=== PATIENT | female | born 1970 | race Caucasian/White ===

== ENCOUNTER 2023-06-20 08:42 | Outpatient (OUT) | payer OTHER, SELFPAY ==
--- NOTE | 2023-06-20 08:46 | MM_ITS ---
Patient: FATOUMATA ALONZO Exam Date: 06/20/2023 : 1970 Gender:F Ordering : DR Stephanie Multani M.D. Admission #: [id number] Family : Order #: [id number] CLICK HERE TO VIEW EXAM RADIOLOGY REPORT PROCEDURE: MM TOMOSYNTHESIS SCREENING BI COMPARISON: MG MAMM SCREEN JASMYNE W CAD, 07/27/2019. MG MAMM SCREEN 3D JASMYNE CAD, 02/05/2022. INDICATIONS: Screening Calculator Name NCI Breast Cancer Risk Assessment Tool 5 Year Breast Cancer Risk 0.90% Lifetime Breast Cancer Risk 8.00% Personal Breast Cancer No Personal Ovarian Cancer No Treatments None Family Cancers Aunt-paternal with breast cancer at age 40. LOCATION: [facility] BREAST COMPOSITION: Extremely dense, which lowers the sensitivity of mammography. FINDINGS: DIAGNOSTIC CATEGORY 0--INCOMPLETE: NEED ADDITIONAL IMAGING EVALUATION. Scattered benign-appearing nodules are present. Scattered benign-appearing calcifications are present. Scattered benign-appearing lymph nodes are present. RIGHT BREAST: 2.3 cm spiculated mass identified on the CC projection tomographic image 33. Spot imaging and ultrasound follow-up is required. LEFT BREAST: No significant suspicious finding. RECOMMENDATIONS: ADDITIONAL MAMMOGRAPHIC VIEWS REQUIRED: RIGHT BREAST - spot compression ULTRASOUND: RIGHT BREAST PLEASE NOTE: A NORMAL MAMMOGRAM DOES NOT EXCLUDE THE POSSIBILITY OF BREAST CANCER. A CLINICALLY SUSPICIOUS PALPABLE LUMP SHOULD BE BIOPSIED. Dictated by: Tevin Donnelly MD on 06/20/2023 at 12:54 Approved by: Tevin Donnelly MD on 06/20/2023 at 12:59
== END 2023-06-20 08:43 | disposition home or self-care (01) ==
LOC: MAMMO 08:42
PROVIDERS: PCP Family Medicine; Visit Provider Family Medicine
DX: Z12.31 Encounter for screening mammogram for malignant neoplasm of breast (principal); Z80.3 Family history of malignant neoplasm of breast; N63.10 Unspecified lump in the right breast, unspecified quadrant
CPT/HCPCS: 77063; 77067

== ENCOUNTER 2023-07-01 07:50 | Outpatient (OUT) | payer OTHER, SELFPAY ==
--- NOTE | 2023-07-01 | MM_ITS ---
Patient: FATOUMATA ALONZO Exam Date: 07/01/2023 : 1970 Gender:F Ordering : DR Stephanie Multani M.D. Admission #: [id number] Family : Order #: [id number] CLICK HERE TO VIEW EXAM RADIOLOGY REPORT PROCEDURE: MM DIAGNOSTIC MAMMO UNILAT RT, 07/01/2023, 08:00 US BREAST RT LIMITED, 07/01/2023, 08:22 COMPARISON: MM TOMOSYNTHESIS SCREENING BI, 06/20/2023. MG MAMM SCREEN 3D JASMYNE CAD, 02/05/2022. MG MAMM SCREEN JASMYNE W CAD, 07/27/2019. MG MAMM SCREEN JASMYNE W CAD, 06/02/2018. INDICATIONS: ABNORMALITY OF RIGHT BREAST ON SCREENING R92.8 Calculator Name NCI Breast Cancer Risk Assessment Tool 5 Year Breast Cancer Risk 0.90% Lifetime Breast Cancer Risk 8.00% Personal Breast Cancer No Personal Ovarian Cancer No Treatments None Family Cancers Aunt-paternal with breast cancer at age 40. LOCATION: [facility] BREAST COMPOSITION: Extremely dense, which lowers the sensitivity of mammography. FINDINGS: DIAGNOSTIC CATEGORY 2--BENIGN FINDING: RIGHT BREAST: Spiculated area within posterior central breast on recent mammogram CC view only appears to represent summation of structures with no corresponding findings on the MLO view or spot magnification views. No abnormal findings within this area on today's ultrasound study. Incidental small cyst versus benign-appearing nodule within the subareolar region, 6 o'clock, 4 x 3 x 2 millimeters. RECOMMENDATIONS: ROUTINE MAMMOGRAM AND CLINICAL EVALUATION IN 12 MONTHS. PLEASE NOTE: A NORMAL MAMMOGRAM DOES NOT EXCLUDE THE POSSIBILITY OF BREAST CANCER. A CLINICALLY SUSPICIOUS PALPABLE LUMP SHOULD BE BIOPSIED. Dictated by: Gage Romero M.D. on 07/01/2023 at 08:56 Approved by: Gage Romero M.D. on 07/01/2023 at 09:04
== END 2023-07-01 07:51 | disposition home or self-care (01) ==
LOC: MAMMO 07:50
PROVIDERS: PCP Family Medicine; Visit Provider Family Medicine
DX: R92.8 Other abnormal and inconclusive findings on diagnostic imaging of breast (principal)
CPT/HCPCS: 76642; 77065

== ENCOUNTER 2024-08-29 09:16 | Emergency (ER) | payer OTHER, SELFPAY ==
[2024-08-29 09:20] VITALS: BP 147/80; PULSE 61; TEMP 36.7; O2SAT 100; BMI 27.4
--- NOTE | 2024-08-29 10:47 | US_ITS ---
[facility] [place] [id number] Patient Name: FATOUMATA ALONZO MRN: [id number] date: 1970 Sex: F Assigned Patient Location: ER Current Patient Location: .[facility] Accession/Order Number: [id number] Exam Date: 08/29/2024 11:00 Report Date: 08/29/2024 11:37 At the request of: MAGDA MERCER Procedure: US venous doppler LE RT Ultrasound venous duplex scan right lower extremity CLINICAL: Right calf pain for several days TECHNIQUE: Thomas-scale, color Doppler and Duplex examination of the right lower extremity was performed with and without provocative maneuvers. FINDINGS: Comparison: None. Sonographic examination of the right lower extremity deep venous system to include the common femoral, superficial femoral and popliteal veins, demonstrates normal compressibility, color-flow, respiratory variation, and augmentation. The origin of the greater saphenous vein demonstrates normal compression, and there is normal color-flow in the proximal profunda femoral vein. There is normal color-flow in the peroneal, posterior tibial, and anterior tibial veins. US/US venous doppler LE RT IMPRESSION: 1. No deep venous thrombosis in the right lower extremity. Electronically authenticated by: HAKEEM SPIVEY Date: 08/29/2024 11:37
--- NOTE | 2024-08-29 11:39 | ED_ITS ---
HPI HPI - General Adult General Chief complaint: Extremity Problem, Nontraumatic Stated complaint: LOWER EXTREMITY PAIN Time Seen by Provider: 08/29/24 09:28 Source: patient Mode of arrival: walk-in Limitations: no limitations History of Present Illness HPI narrative: Patient presents ED complaining of right calf pain. She said she has varicose veins and had some mild swelling. She said yesterday she was on her feet a lot and she had some pain in her calf. She said last night she had pain in her calf as well. She is here to rule out blood clot because she was concerned for that. No chest pain no shortness of breath. Alert and oriented in no acute distress Related Data Home Medications ?Medication ?Instructions ?Recorded ?Confirmed No Known Home Medications 08/29/24 08/29/24 Allergies Allergy/AdvReac Type Severity Reaction Status Date / Time meperidine (From Demerol) AdvReac Severe Hallucinati Verified 08/29/24 09:25 ng Opioid HPI Opioid Management Most Recent Opioid Data: Last Pain Scale 5 08/29/24 09:36 08/29/24 Review of Systems ROS Status of ROS 10 or more systems reviewed and unremark able except as noted in history and below PFSH PFSH Social History Little interest or pleasure in doing things: not at all Feeling down, depressed, or hopeless: not at all Exam Narrative Exam Narrative: General: alert, no acute distress Cardiovascular: regular rate and rhythm, normal peripheral perfusion. Respiratory: Lungs CTA, respirations non labored. Extremities: no deformity, no trauma. Mild tenderness to palpation posterior right calf. Normal distal pulses and. Normal motor Neurological: oriented x 4, LOC appropriate for age. Constitutional Vital Signs, click to edit/add: Last Vital Signs Temp 98.1 F 08/29/24 09:20 Pulse 61 08/29/24 09:20 Resp 20 08/29/24 09:20 BP 147/80 H 08/29/24 09:20 Pulse Ox 100 08/29/24 09:20 O2 Del Method Room Air 08/29/24 09:20 Course Vital Signs Vital signs: Vital Signs Temperature 98.1 F 08/29/24 09:20 Pulse Rate 61 08/29/24 09:20 Respiratory Rate 20 08/29/24 09:20 Blood Pressure 147/80 H 08/29/24 09:20 Pulse Oximetry 100 08/29/24 09:20 Oxygen Delivery Method Room Air 08/29/24 09:20 Temperature 98.1 F 08/29/24 09:20 Pulse Rate 61 08/29/24 09:20 Respiratory Rate 20 08/29/24 09:20 Blood Pressure 147/80 H 08/29/24 09:20 Pulse Oximetry 100 08/29/24 09:20 Oxygen Delivery Method Room Air 08/29/24 09:20 Medical Decision Making MDM Narrative Medical decision making narrative: Vascular study negative for any acute DVT in the right lower extremity. Most likely that this is of varicose vein that is causing some pain in the calf. Return to ED if worsening symptoms otherwise follow-up with family doctor. Patient is comfortable care plan for home Differential Diagnosis Differential Diagnosis: Varicose vein, SVT, DVT Discharge Plan Discharge Chief Complaint: Extremity Problem, Nontraumatic Clinical Impression: Right calf pain Patient Disposition: Home, Self-Care Time of Disposition Decision: 11:35 Condition: Good Mode of Transportation: Private Vehicle Prescriptions / Home Meds: No Action No Known Home Medications Print Language: Kenyan Instructions: Leg Pain (ED) Referrals: Stephanie Multani MD [Primary Care Provider] - 1 week
== END 2024-08-29 11:41 | disposition home or self-care (01) ==
PROVIDERS: Emergency Provider Emergency Medicine; PCP Family Medicine
DX: M79.661 Pain in right lower leg (principal)
CPT/HCPCS: 93971; 99285

== ENCOUNTER 2024-11-07 07:59 | Outpatient (OUT) | payer OTHER, SELFPAY ==
--- OUTSIDE RECORDS SUMMARY | 2024-11-07 08:03 | XMS_ITS | CCD ---
Author Organization [facility] Inform ion Partnership [facility] Care Team Providers Care Rabbit Breeder Name Role Phone DR STEPHANIE MULTANI Admitting Unavailable DR STEPHANIE MULTANI Primary Care Unavailable DR STEPHANIE MULTANI Attending Unavailable DR GAGE ROMERO Consulting Unavailable KOBE, DR STEPHANIE Mack Consulting Unavailable Allergies Allergy Classification Reported Allergen(s) Allergy Type Date of Onset Reaction(s) Facility (1 source) Sulfamethoxazole / Trimethoprim Drug Allergy 7 [facility] Repository Problems Problem Classification Problem Date Documented Da te Episodic/Chronic Cardiac dysrhythmias (2 sources) Palpitations; Translations: [Palpitations] 10-09-2024 Episodic Nonspecific chest pain (2 sources) Left sided chest pain; Translations: [Chest pain, unspecified] 10-09-2024 Episodic Other screening for suspected conditions (not mental disorders or infectious disease) (4 sources) Encounter for screening mammogram for malignant neoplasm of breast; Translations: [ENC SCR MAMMO MALIG NEOPLASM BREAST] Onset: 02-05-2022 Episodic Other skin disorders (2 sources) Mass of skin of right lower limb; Translations: [Disorder of the skin and subcutaneous tissue, unspecified] 04-26-2024 Episodic Residual codes; unclassified (1 source) Family history of malignant neoplasm of breast; Translations: [FAMILY HX MALIG NEOPLASM OF BREAST] Onset: 02-10-2022 Episodic Residual codes; unclassified (1 source) Family history of cardiac disorder; Translations: [Family history of ischemic heart disease and other diseases of the circulatory system] 10-09-2024 Episodic Residual codes; unclassified (1 source) Family history of coronary arteriosclerosis; Translations: [Family history of ischemic heart disease and other diseases of the circulatory system] 10-09-2024 Episodic Residual codes; unclassified (2 sources) Family history of ischemic heart disease and other diseases of the circulatory system; Translations: [Family history of ischemic heart disease] 10-09-2024 Episodic Results Test Name Value Interpretation Reference Range Facil ity MG MAMM SCREEN 3D JASMYNE CADon 02-05-2022 MG MAMM SCREEN 3D JASMYNE CAD Patient: MITRA ALOZNO Exam Date: 02/05/2022 : 1970 Gender:F Ordering : DR STEPHANIE MULTANI M.D. Admission #: [id number] Family : Order #: [id number] CLICK HERE TO VIEW EXAM RADIOLOGY REPORT PROCEDURE: MAMMOGRAM SCREENING 3D BILATERAL CAD COMPARISON: MG MAMM SCREEN JASMYNE W CAD, 04/01/2017. MG MAMM SCREEN JASMYNE W CAD, 07/27/2019. MG MAMM SCREEN JASMYNE W CAD, 06/02/2018. INDICATIONS: Screening mammography Calculator Name NCI Breast Cancer Risk Assessment Tool 5 Year Breast Cancer Risk 0.80% Lifetime Breast Cancer Risk 8.20% Personal Breast Cancer No Personal Ovarian Cancer No Treatments None Family Cancers Aunt-paternal with breast cancer at age 40. LOCATION: [facility] BREAST COMPOSITION: Extremely dense, which lowers the sensitivity of mammography. FINDINGS: DIAGNOSTIC CATEGORY 2--BENIGN FINDING: RIGHT BREAST: No significant suspicious finding. Scattered benign-appearing calcifications are present. No significant change has occurred. LEFT BREAST: No significant suspicious finding. No significant change has occurred. RECOMMENDATIONS: ROUTINE MAMMOGRAM AND CLINICAL EVALUATION IN 12 MONTHS. PLEASE NOTE: A NORMAL MAMMOGRAM DOES NOT EXCLUDE THE POSSIBILITY OF BREAST CANCER. A CLINICALLY SUSPICIOUS PALPABLE LUMP SHOULD BE BIOPSIED. Dictated by: Gage Romero M.D. on 02/05/2022 at 10:47 Approved by: Gage Romero M.D. on 02/05/2022 at 10:51 Normal [facility] Vital Signs Date Time Vital Sign Value Performing Clinician Faci lity 10-09-2024 09:49-0500 Body height 157.48 cm [facility] 10-09-2024 09:49-0500 Body mass index (BMI) [Ratio] 27.8 kg/m2 [facility] 10-09-2024 09:49-0500 Body weight 68.94 kg [facility] 10-09-2024 09:49-0500 Diastolic blood pressure 83 mm[Hg] [facility] 10-09-2024 09:49-0500 Heart rate 60 /min [facility] 10-09-2024 09:49-0500 Systolic blood pressure 126 mm[Hg] [facility] 04-26-2024 15:36-0400 Body height 157.48 cm [facility] 04-26-2024 15:36-0400 Body mass index (BMI) [Ratio] 28.7 kg/m2 [facility] 04-26-2024 15:36-0400 Body weight 71.21 kg [facility] 04-26-2024 15:36-0400 Diastolic blood pressure 83 mm[Hg] [facility] 04-26-2024 15:36-0400 Heart rate 63 /min [facility] 04-26-2024 15:36-0400 Systolic blood pressure 134 mm[Hg] [facility] Encounters Encounter Date Encounter Type Care Provider Facility Start: 10-09-2024 End: 10-09-2024 ambulatory [facility] Work Phone: Start: 10-09-2024 End: 10-09-2024 Patient encounter procedure [facility] Work Phone: Start: 08-30-2024 Non-patient / Non-visit [facility] Work Phone: Start: 04-26-2024 End: 04-26-2024 ambulatory [facility] Work Phone: Start: 04-26-2024 End: 04-26-2024 Patient encounter procedure [facility] Work Phone: Start: 02-05-2022 End: 02-06-[address] STEPHANIE MULTANI Facility: Plan of Treatment Date Care Activity Detail Author [facility] Payers Date Payer Category Payer Unknown [id number] 1957 Unknown [id number] Unknown MMO [id number] Unknown [employer] [id number] Unknown HCAP/HFA/FAP Active [id number] Social History Date Type Detail Facility Start: 04-26-2024 End: 04-26-2024 Tobacco smoking status NHIS Never smoked tobacco (finding) [facility] Start: 1970 Sex Assigned At Female F [facility] Start: 10-09-2024 Sex Female (finding) [facility] Evaluation note Note Date & Type Note Facility Evaluation note No assessment information availa ble [facility] Work Phone: Evaluation note Note Date & Type Note Facility Evaluation note Diagnosis Onset Date Resolution Family history of coronary artery disease acute October 09, 2024 9:42am Family history of mitral valve prolapse acute October 092024 9:42am Left-sided chest pain acute Sep 9:42am Palpitations acute September 9:42am [facility] Work Phone: Summary Purpose Family History No Family History Records Found Advance Directives Advance Directive Response Recorded Date/ Time Advance Directives No April 26 3:31pm Advance Directive Response Recorded Date/ Time Advance Directives No April 26 2:31pm Chief Complaint and Reason for Visit Chief Complaint left leg blister Chief Complaint Admit Date Amb Documentation August 30, 2024 9:28am talk about MRI October 09, 2024 9 :42am Reason for Visit Admit Date Family history of coronary artery diseas e October 09, 2024 9:42am Family history of mitral valve prolapse October 09, 2024 9:42am Left-sided chest pain October 09, 2024 9:42am Palpitations October 09, 2024 9 :42am Additional Source Comments INFORMATION SOURCE (unrecogn ized section and content) DATE CREATED AUTHOR 02/11/2022 [facility] Care Teams (unrecognized sec tion and content) Team Status: Active Member Role Status Dates Stephanie Multani MD Primary Care Provider Active Team Status: Active Member Role Status Dates Stephanie Multani MD Primary Care Provider Active Start: August 30, 2024 Jen Her CMA Attending Provider Active Start: August 30, 2024 Team Status: Inactive Member Role Status Dates Stephanie Multani MD Primary Care Provide r, Attending Provider Active Start: October 09, 2024 End: October 09, 2024 Team Status: Active Member Role Status Dates Stephanie Multani MD Primary Care Provider Active Team Status: Inactive Member Role Status Dates Stephanie Multani MD Primary Care Provide r, Attending Provider Active Start: April 26, 2024 End: April 26, 2024 Team Status: Active Member Role Status Dates Stephanie Multani MD Primary Care Provider Active Start: August 30, 2024 Jen Her CMA Attending Provider Active Start: August 30, 2024 Team Status: Inactive Member Role Status Dates Stpehanie Multani MD Primary Care Provide r, Attending Provider Active Start: October 09, 2024 End: October 09, 2024 Goals (unrecognized section and content) Goals may be documented in a n alternate sectionGoals may be documented in an alternate section FOR RECORDS PERTAINING TO PATIENTS WHO ARE OR HAVE BEEN ENROLLED IN A CHEMICAL DEPENDENCY/SUBSTANCEABUSE PROGRAM, SOME INFORMATION MAY BE OMITTED. This clinical summary was aggregated from multiple sources. Caution should be exercised in using it in the provision of clinical care. This summary normalizes information from multiple sources, and as a consequence, information in this document may materially change the coding, format and clinical context of patient data. In addition, data may be omitted in some cases. CLINICAL DECISIONS SHOULD BE BASED ON THE PRIMARY CLINICAL RECORDS. [facility] [facility]. provides no warranty or guarantee of the accuracy or completeness of information in this document.
--- NOTE | 2024-11-07 08:15 | CA_ITS ---
Patient Name: FATOUMATA ALONZO MR#: [id number] : 1970 Exam Date: 11/07/2024 Ordering Doctor: DR Stephanie Multani M.D. ECHOCARDIOGRAM REPORT PROCEDURE: CA ECHO DOPPLER COMPLETE INDICATIONS: Chest pain, palpitations COMPARISON: None. DESCRIPTION: COMPLETE ECHOCARDIOGRAM Real-time transthoracic echocardiography with 2D, M-mode, spectral and color flow Doppler performed. QUALITY: Technical quality was good. LEFT VENTRICLE: Normal chamber size. Normal left ventricular wall thickness. Normal left ventricular systolic function without wall motion abnormalities. LV EF: Normal left ventricular ejection fraction 55%. DIASTOLIC: Normal diastolic function. ATRIAL SEPTUM: Visually appears intact. LEFT ATRIUM: Normal chamber size. RIGHT ATRIUM: Normal chamber size. RIGHT VENTRICLE: Normal chamber size. Normal right ventricular systolic function. TRICUSPID VALVE: Normal mobility and thickness. No stenosis with trivial regurgitation. No evidence of pulmonary hypertension.RVSP 29 mmHg MITRAL VALVE: Normal mobility and thickness. No evidence of mitral valve stenosis. There is no mitral annular calcification. Trivial mitral regurgitation. AORTIC VALVE: Normal trileaflet appearance. No visible sclerosis. Normal leaflet mobility. No evidence of aortic valve stenosis. No aortic regurgitation. AORTIC ROOT: Normal diameter and appearance. Ascending aorta is normal in size. PULMONIC VALVE: Normal thickness and mobility. No stenosis. Trivial regurgitation. PERICARDIUM: No evidence of pericardial effusion. IVC: Collapes with inspirations. IVC is normal in size. PLEURA: CONCLUSION: Normal left ventricle cavity size and wall thickness, normal left ventricle systolic function without wall motion abnormalities, ejection fraction 55% Normal right ventricle size and systolic function Normal right-sided pressures No significant valvular abnormalities Adult Echocardiography Procedure Report Left Ventricle LVEDD (3.7 - 5.6 cm): 5.00 cm LVESD (2.2 - 4.0 cm): 3.45 cm LVIVS thickness (0.6 - 1.2 cm): 0.83 cm LVPW thickness (0.5 - 1.0 cm): 0.61 cm e': 0.11 m/s E - e': 5.77 LVOT Max Gradient: 3.25 mm[Hg] LVOT Area (cm2): 0.90 m/s Peak Velocity (LVOT): 0.90 m/s Mean Velocity (LVOT): 0.63 m/s LVOT Diameter 1.80 cm Left Ventricular Ejection Fraction: Left Atrium LA Volume Index (2D A2C): 30.82 ml/m2 Left Atrium Systolic Dimension: 3.53 cm Mitral Valve MV E to A Ratio: 1.19 MV Max Gradient: MV Mean Gradient: Mitral Valve A-Wave Peak Velocity: 0.54 m/s Mitral Valve E-Wave Peak Velocity: 0.64 m/s Cardiovascular Orifice Area: Right Ventricle RV Internal Diastolic Dimension: Aorta AO Root Diam: 2.93 cm Ascending Ao Diam: 2.77 cm Aortic Valve AoV Area (Peak Nahun): 1.78 cm2, 1.78 cm2 AoV Area (VTI): 1.71 cm2, 1.71 cm2 Deceleration Davis: Pressure Half-Time: Peak Velocity(Antegrade Flow): 1.28 m/s Peak Gradient(Antegrade Flow): 6.59 mm[Hg] Mean Velocity(Antegrade Flow): 0.86 m/s Mean Gradient(Antegrade Flow): 3.42 mm[Hg] Velocity Time Integral: 27.73 cm Tricuspid Valve Peak Velocity (Regurgitant Flow): 2.54 m/s Peak Velocity: Pulmonic Valve Mean Gradient: 1.83 mm[Hg] Mean Velocity: 0.63 m/s Peak Velocity: 0.93 m/s, 0.85 m/s Peak Gradient: 2.87 mm[Hg], 3.45 mm[Hg] Right Atrium Right Atrium Systolic Pressure: 20.90 ml, 20.90 ml Dictated by: Dany Mancini MD on 11/07/2024 at 18:13 Approved by: Dany Mancini MD on 11/07/2024 at 18:25
[2024-11-07] MEDS: REGADENOSON 0.4 MG/5 ML SYRINGE IV (10:36)
[2024-11-07] MEDS: AMINOPHYLLINE 250 MG/10 ML VIAL 50 MG IVP (10:36)
--- NOTE | 2024-11-07 10:37 | PC.NURSE ---
Nursing Note Cardiac Stress Test Reviewed: Medication, allergies and patient history reviewed. Stress Test: [x ] Patient tolerated stress test well. [ ] Patient unable to tolerate walking on treadmill. Switched to Lexiscan stress test. [ x] No chest pain noted per patient [ ] Chest pain that resolved prior to leaving stress lab. [ ] No dyspnea noted. [x ] Dyspnea that resolved prior to leaving stress lab. [ x] Patient left stress lab asymptomatic and hemodynamically stable. [ ] Patient taken to the Emergency Room due to non-resolving symptoms following stress test. [ ] Patient achieved target heart rate. [ ] Patient unable to achieve target heart rate. [x ] Aminophylline administered as reversal agent to Lexiscan (Regadenoson). [ ] Nitro administered. Nursing Comments: Patient was prepared for walking test per protocol and we obtained a pretest ECG that was able to be analyzed. Once patient was moving on the treadmill the ECG tracing was unable to be read. Patient leads were checked and intact but tracing was not diagnostic. Patient was removed from the treadmill, the leads were all removed and her skin was prepped again. New patches and leads were placed, a pretest ECG was performed and able to be analyzed by the machine but once the patient was placed back on the treadmill we were unable to read anything on the ECG. She was then switched to a lexiscan test. The lexiscan was administered and after 3 minutes patient remained symptomatic. Aminophylline was administered per protocol to reverse the effects of the lexiscan. Prior to leaving the stress lab patient reported feeling back to her baseline with a slight headache remaining.
--- NOTE | 2024-11-07 17:38 | P.STRESS_ITS ---
Stress Test Stress Test Allergies Allergy/AdvReac Type Severity Reaction Status Date / Time meperidine (From Demerol) AdvReac Severe Hallucinati Verified 08/29/24 09:25 ng Requesting physician: Pravin Haley Procedure: Lexiscan Cardiolite stress test General Information: Reason for Stress Test: Chest pain, palpitations Risk Factors: Unspecified family history of cardiac disease Resting 12 - Lead Electrocardiogram: Normal sinus rhythm @ 65. Right axis deviation. Inverted T-waves in aVL. Stress Test: Protocol: Lexiscan protocol was initiated with injection of 0.4mg Lexiscan IV push followed by Cardiolite. Blood pressure: Initial and maximum: 138/88 Rate & rhythm: Patient remained in sinus rhythm during the exercise and recovery portions of the study.? The maximum heart rate was 113, which was 66% of the maximum predicted heart rate. ST-segments & T-waves: There were no T-wave changes and no ST-segment changes when compared to the baseline EKG. Patient response/symptoms: There were no symptoms similar to the chief complain t. Interpretation: Normal Lexiscan stress test without electrocardiographical evidence of ischemia. Patient was asymptomatic regarding chief complaint. Cardiolite imaging interpretation will be reported separately. Clinical correlation required.
== END 2024-11-07 08:00 | disposition home or self-care (01) ==
LOC: NM 08:00
PROVIDERS: PCP Family Medicine; Visit Provider Family Medicine
DX: R07.9 Chest pain, unspecified (principal); R00.2 Palpitations; Z82.49 Family history of ischemic heart disease and other diseases of the circulatory system
CPT/HCPCS: 78452; 93017; 93306; A9500; J0280; J2785

== ENCOUNTER 2025-08-26 14:06 | Outpatient (OUT) | payer OTHER, SELFPAY ==
--- NOTE | 2025-08-26 14:10 | MM_ITS ---
Patient Name: FATOUMATA ALONZO MR#: [id number] : 1970 Exam Date: 08/26/2025 Ordering Doctor: DR NELSON BULLOCK M.D. RADIOLOGY REPORT PROCEDURE: MM TOMOSYNTHESIS SCREENING BI COMPARISON: MM DIAGNOSTIC MAMMO UNILAT RT, 07/01/2023. MM TOMOSYNTHESIS SCREENING BI, 06/20/2023. MG MAMM SCREEN 3D JASMYNE CAD, 02/05/2022. MG MAMM JASMYNE DIAG W CAD DIG, 12/05/2006. INDICATIONS: Screening Calculator Name NCI Breast Cancer Risk Assessment Tool 5 Year Breast Cancer Risk 0.90% Lifetime Breast Cancer Risk 7.80% Personal Breast Cancer No Personal Ovarian Cancer No Treatments None Family Cancers Aunt-paternal with breast cancer at age 40. LOCATION: [facility] BREAST COMPOSITION: The breasts are extremely dense, which lowers the sensitivity of mammography. FINDINGS: RIGHT BREAST: No significant suspicious finding. Similar focal asymmetries are noted. Benign-appearing calcifications are present. LEFT BREAST: No significant suspicious finding. Similar focal asymmetries are noted. Benign-appearing calcifications are present. DIAGNOSTIC CATEGORY 2--BENIGN FINDING. NO CHANGE FROM COMPARISON. RECOMMENDATIONS: ROUTINE MAMMOGRAM AND CLINICAL EVALUATION IN 12 MONTHS. Dictated by: Haroon Edwards MD on 08/26/2025 at 15:43 Approved by: Haroon Edwards MD on 08/26/2025 at 15:52
== END 2025-08-26 14:07 | disposition home or self-care (01) ==
LOC: MAMMO 14:07
PROVIDERS: PCP Family Medicine; Visit Provider Family Medicine
DX: Z12.31 Encounter for screening mammogram for malignant neoplasm of breast (principal); Z80.3 Family history of malignant neoplasm of breast
CPT/HCPCS: 77063; 77067